=== PATIENT | female | born 1955 | race Caucasian/White ===

== ENCOUNTER → 2023-10-07 09:06 | Outpatient (REF) | payer OTHER, SELFPAY | LOC: RAD 09:06 | PROVIDERS: ATTENDING PHYSICIAN Physical Medicine & Rehabilitation; FAMILY PHYSICIAN Internal Medicine | DX: S43.002A Unspecified subluxation of left shoulder joint, initial encounter (principal) | CPT/HCPCS: 76882 ==

== ENCOUNTER → 2024-02-04 14:19 | Outpatient (REF) | payer OTHER, SELFPAY | LOC: WDC 14:19 | PROVIDERS: ATTENDING PHYSICIAN Nurse Practitioner; FAMILY PHYSICIAN Internal Medicine | DX: Z12.31 Encounter for screening mammogram for malignant neoplasm of breast (principal) | CPT/HCPCS: 77063; 77067 ==